=== PATIENT | male | born 1975 | race Caucasian/White ===

== ENCOUNTER 2020-07-18 00:24 | Emergency (ER) | payer OTHER ==
[2020-07-18] MEDS ORDERED: cefTRIAXone 1 GM Vial IM ONE (00:57)
--- NOTE | 2020-07-18 01:02 | EDM.PDOC ---
ED HPI GENERAL MEDICAL PROBLEM - General Chief Complaint: ENT Problem Stated Complaint: DENTAL ABSCESS Time Seen by Provider: 07/18/20 00:57 Source of Information: Reports: Patient History Limitations: Reports: No Limitations - History of Present Illness INITIAL COMMENTS - FREE TEXT/NARRATIVE: Patient had back molar pulled , 3 days ago, due to abscess. Not covered with antibiotics. Noted increasing pain and swelling this past day that dramatically worsened over last 6 hours. No fevers/chills. No obvious drainage. Unable to fully open mouth now. No other new/acute complaints. Treatments [employer]: Reports: Acetaminophen, NSAIDS Right Lower Knee Pain Score (Numeric/FACES): 9 - Related Data Allergies Allergy/AdvReac Type Severity Reaction Status Date / Time Penicillins Allergy Other Verified 07/18/20 00:25 Home Meds: Home Meds Clindamycin HCl 300 mg PO Q6HR #24 capsule 07/18/20 [Rx] Past Medical History - Past Health History Medical/Surgical History: Denies Medical/Surgical History Social & Family History - Tobacco Use Tobacco Use Status *Q: Former Tobacco User Used Tobacco, but Quit: Yes Month/Year Tobacco Last Used: 2015 - Caffeine Use Caffeine Use: Reports: None - Alcohol Use Days Per Week of Alcohol Use: 7 Number of Drinks Per Day: 3 Total Drinks Per Week: 21 - Recreational Drug Use Recreational Drug Use: No ED ROS GENERAL - Review of Systems Review Of Systems: See Below Constitutional: Denies: Fever, Chills, Night Sweats HEENT: Reports: Dental Pain. Denies: Ear Pain, Eye Pain, Sinus Problem, Throat Pain, Throat Swelling, Vision Change Respiratory: Reports: No Symptoms Cardiovascular: Reports: No Symptoms Skin: Denies: No Symptoms Neurological: Denies: No Symptoms ED EXAM, GENERAL - Physical Exam Exam: See Below Exam Limited By: No Limitations General Appearance: Alert, Mild Distress Eye Exam: Bilateral Eye: EOMI, PERRL Ears: Hearing Grossly Normal Nose: Normal Inspection Throat/Mouth: Other (Obvious mild swelling right lower jawline where it is tender with palpation. Patient unable to open mouth enough to allow inspection of oral cavity.) Head: Facial Swelling, Facial Tenderness Neck: Supple, Non-Tender, Full Range of Motion Respiratory/Chest: No Respiratory Distress Cardiovascular: Regular Rate, Rhythm Extremities: Normal Capillary Refill Neurological: Alert, Oriented, Normal Cognition, Normal Gait Skin Exam: Warm, Dry, Normal Color Course - Vital Signs Last Recorded V/S: Last Vital Signs Temp 36.3 C 07/18/20 00:31 Pulse 84 07/18/20 00:31 Resp 12 07/18/20 00:31 BP 148/87 H 07/18/20 00:31 Pulse Ox 97 07/18/20 00:31 - Re-Assessments/Exams Free Text/Narrative Re-Assessment/Exam: 07/18/20 01:07 Will cover patient with IM Rocephin and PO Clindamycin. To observe closely for changes and follow up as needed. Departure - Departure Time of Disposition: 00:57 Disposition: Home, Self-Care 01 Condition: Good Clinical Impression: Dental infection - Discharge Information *PRESCRIPTION DRUG MONITORING PROGRAM REVIEWED*: Not Applicable *COPY OF PRESCRIPTION DRUG MONITORING REPORT IN PATIENT APOORVA: Not Applicable Prescriptions: Clindamycin HCl 300 mg PO Q6HR #24 capsule Referrals: Kimberli Alcantara PA [Primary Care Provider] - Additional Instructions: Take the antibiotics we gave you 2tabs every 6 hours. supervisor [employer] the prescription for the other 6 days of coverage. Take 1 tab every 6 hours as that is a stronger pill. Take Tramadol 1 every 6 hours. OK to mix with Tylenol. Follow up as needed if things are not improving within 24-48 hours. Follow up otherwise as needed if things suddenly worsen. Sepsis Event Note (ED) - Evaluation Sepsis Screening Result: No Definite Risk - Focused Exam Vital Signs: Vital Signs Temp Pulse Resp BP Pulse Ox 07/18/20 00:31 36.3 C 84 12 148/87 H 97
== END 2020-07-18 01:10 | disposition home or self-care (01) ==
LOC: LL.ED 00:24
DX: K04.7 Periapical abscess without sinus (principal); Z88.0 Allergy status to penicillin; Z87.891 Personal history of nicotine dependence
CPT/HCPCS: 96372; 99282; J0696